=== PATIENT | female | born 1960 | race Native Hawaiian/Other Pacific Islander ===

== ENCOUNTER 2017-12-15 22:14 | Inpatient (IN) | payer MEDICARE, MEDICAID ==
[~2017-12-15] VITALS: Ht 162.6 cm; Wt 72.6 kg
[2017-12-15] MEDS ORDERED: SERT50TA12 (22:50)
[2017-12-15] MEDS ORDERED: DIPH50CA38 (22:50)
[2017-12-15] MEDS ORDERED: QUET400T3 (22:50)
[2017-12-15] MEDS ORDERED: CLON1TAB5 (22:50)
[2017-12-15] MEDS ORDERED: HYDR-3895 (22:50)
[2017-12-15] MEDS ORDERED: BUPR150T10 (22:50)
[2017-12-15] MEDS ORDERED: QUET200T3 (22:50)
[2017-12-15] MEDS ORDERED: HYDR-3028 (22:50)
[2017-12-15] MEDS ORDERED: LEVO25TA7 (22:50)
[2017-12-15] MEDS ORDERED: MAGNESIUM HYDROXIDE 30 ML UDC PO PRN (23:00)
[2017-12-15] MEDS ORDERED: LORAZEPAM 0.5 MG TABLET PO PRN (23:00)
[2017-12-15] MEDS ORDERED: MAG HYDROX/AL HYDROX/SIMETH 30 ML UDC PO PRN (23:00)
[2017-12-15] MEDS ORDERED: LEVO150T8 PO (23:17)
[2017-12-15 23:53] VITALS: BP 114/68
--- NOTE | 2017-12-16 00:21 | NUR ---
ADMISSION NOTES ADMITTED THIS 57 Y/O FEMALE PATIENT ADMIT FROM [facility] / , PT. INTIALLY CAME FROM HOME. PT IS ON 5150 HOLD FOR GD ,DTS , PER HOLD PT. IS ANXIOUS,PARANOID,RESPONDING TO INTERNAL STIMULI SI, UPON FACE TO FACE ASSESSMENT PATIENT IS A&O X2,3 ANXIOUS PARANOID , PT. IS POOR HISTORIAN, POOR INSIGHT ,POOR JUDGEMENT , V/S WNL, NO ACUTE DISTRESS NOTED, HX OF BIPOLAR DISORDER , ANXIETY,INSOMNIA MD AWARE AND NOTIFIED OF THE ADMISSION, PT. REFUSED TO FULL BODY SKIN ASSSESSMENT , PT. ONLY ALLOWED TO SUPERFICIAL SKIN ASSESSMENT AND PER PT. MY SKIN IS FINE, PICTURE TAKEN AND PLACED IN THE CHART, ENCOURAGED PT. VERBALIZED ANY FEELING CONCERN TO STAFF, ORIENT TO UNIT POLICY, WILL CONTINUE TO MONITOR FOR Q15 SAFETY AND BEHAVIOR.
--- NOTE | 2017-12-16 06:27 | NUR ---
GPS RN NOTES: PT.COMFORTABLY RESTING IN HER BED , DENIES ANY SI/HI AT THIS TIME , DENIES ANY PAIN /DISCOMFRT AT THIS TIME , OFFERED PT. TO FULL BODY SKIN ASSESSMENT BUT PT. STILL REFUSED AT THIS TIME AND DURING SHIFT PT. REFUSED SHOWER PER PT. MAY BE DURING DAY TIME, WILL CONTINUITY WITH CARE .
--- NOTE | 2017-12-16 06:45 | NUR ---
GPS RN NOTES: PT.COMFORTABLY RESTING IN HER BED , DENIES ANY SI/HI AT THIS TIME , DENIES ANY PAIN /DISCOMFRT AT THIS TIME , OFFERED PT. TO FULL BODY SKIN ASSESSMENT BUT PT. STILL REFUSED AT THIS TIME, ENCOURAGED EXPLAINED RISKS AND BENEFITS ,STILL REFUSED, AND DURING SHIFT PT. REFUSED SHOWER PER PT. MAY BE DURING DAY TIME, WILL CONTINUITY WITH CARE .
[2017-12-16 07:28] LABS: BASOPHILS % (AUTO) 0.5 % (0.0-2.0); EOSINOPHILS % (AUTO) 3.5 % (0.0-6.0); HEMATOCRIT 40 % (33-45); HEMOGLOBIN 13.9 g/dL (11.5-14.8); LYMPHOCYTES % (AUTO) 28.5 % (20.0-44.0); MEAN CORPUSCULAR HEMOGLOBIN 33 PG (26.0-33.0); MEAN CORPUSCULAR HGB CONC 35 g/dl (31.0-36.0); MEAN CORPUSCULAR VOLUME 95 fL (82-100); MONOCYTES # (AUTO) 0.8 /CMM (0.1-1.30); MONOCYTES % (AUTO) 10.9 % (2.0-12.0); NEUTROPHILS % (AUTO) 56.6 % (43.0-81.0); PLATELET COUNT (AUTO) 284 /CMM (150-450); RDW COEFFICIENT OF VARIATION 12.4 (11.5-15.0); RED BLOOD CELL COUNT(AUTO) 4.17 MIL/uL (4.0-5.2)
--- NOTE | 2017-12-16 07:31 | NUR ---
GPS RN NOTES CALLED [facility]ILY [facility] NO BODY ANSWERING PHONE / LEFT MESSAGE AT THIS NUMBERS YANNICK KRAUSE / DAUGHTER# AND BHARATHI COLIN SON # [phone]
[2017-12-16 07:49] LABS: THYROID STIMULATING HORMONE 0.807 uIU/mL (0.358-3.74)
[2017-12-16 08:00] VITALS: BP 110/69
[2017-12-16] MEDS: LEVOTHYROXINE SODIUM 75 MCG TABLET PO SCH (08:27)
[2017-12-16 08:28] LABS: ALBUMIN 3.9 g/dL (3.4-5.0); BILIRUBIN,TOTAL 0.4 mg/dL (0.2-1.0); CALCIUM, SERUM 8.7 mg/dL (8.5-10.1); CREATININE 0.7 mg/dL (0.6-1.3); MAGNESIUM 2.1 mg/dL (1.8-2.4); PHOSPHORUS 4.4 mg/dL (2.5-4.9); POTASSIUM 4.4 mmol/L (3.5-5.1); TOTAL PROTEIN, SERUM 7.4 g/dL (6.4-8.2)
[2017-12-16] MEDS: ACETAMINOPHEN 325 MG TABLET PO PRN (11:52)
[2017-12-16 12:16] LABS: APPEARANCE,URINE SL CLOUDY (CLEAR); BILIRUBIN,URINE NEGATIVE (NEGATIVE); BLOOD, URINE NEGATIVE Ery/uL (NEGATIVE); COLOR,URINE YELLOW (YELLOW); KETONES,URINE NEGATIVE (NEGATIVE); LEUKOCYTE ESTERASE ,URINE 2+ (NEGATIVE); NITRITE, URINE NEGATIVE (NEGATIVE); PROTEIN,URINE NEGATIVE (NEGATIVE); UGLUCOSE NEGATIVE (NEGATIVE); UROBILINOGEN,URINE 0.2 EU/dL (0.2)
[2017-12-16] MEDS: NICOTINE PATCH (14MG) 14 MG PATCH.TD24 TD SCH (12:21)
--- NOTE | 2017-12-16 13:32 | NUR ---
Initial Discharge Plan: Pt currently resides at [address] [place] [id number]; ([phone]). Per pt, she would like to return here with some outpatient services. SW will work with the pt and the MD regarding appropriate discharge plans. SW will form a safe and proper discharge.
[2017-12-16] MEDS: QUETIAPINE FUMARATE 100 MG TABLET PO SCH ×2 (14:45→21:52)
[2017-12-16 15:17] LABS: BACTERIA,URINE Few /HPF (None Seen); SQUAMOUS EPITHELIAL CELL,UR Few /HPF (None Seen)
[2017-12-16 16:00] VITALS: BP 106/68
--- NOTE | 2017-12-16 16:01 | NUR ---
GPS RN NOTE: NOTIFIED DR HARVEY REGARDING [facility] NO NEW ORDERS AT THIS TIME, WAITING FOR URINE CULTURE.
--- NOTE | 2017-12-16 16:19 | NUR ---
CAMI called the pt's daughter, Raghu Garcia ([phone]), and left a message on her voicemail.
[2017-12-16 21:54] VITALS: BP 104/65
[2017-12-17] MEDS: QUETIAPINE FUMARATE 100 MG TABLET PO SCH ×3 (08:08→20:55)
[2017-12-17] MEDS: NICOTINE PATCH (14MG) 14 MG PATCH.TD24 TD SCH (08:09)
[2017-12-17] MEDS: BUPROPION XL 150 MG TAB.ER.24 PO SCH (08:09)
[2017-12-17] MEDS: LEVOTHYROXINE SODIUM 75 MCG TABLET PO SCH (08:09)
[2017-12-17 08:29] VITALS: BP 112/62
[2017-12-17] MEDS: ACETAMINOPHEN 325 MG TABLET PO PRN (09:43)
[2017-12-17 16:00] VITALS: BP 147/79
[2017-12-17 20:00] VITALS: BP 105/57
[2017-12-17] MEDS: TEMAZEPAM 7.5 MG CAPSULE PO PRN (20:55)
[2017-12-18 08:00] VITALS: BP 140/90
[2017-12-18] MEDS: QUETIAPINE FUMARATE 100 MG TABLET PO SCH ×3 (08:02→21:22)
[2017-12-18] MEDS: NICOTINE PATCH (14MG) 14 MG PATCH.TD24 TD SCH (08:02)
[2017-12-18] MEDS: BUPROPION XL 150 MG TAB.ER.24 PO SCH (08:02)
[2017-12-18] MEDS: LEVOTHYROXINE SODIUM 75 MCG TABLET PO SCH (08:02)
--- NOTE | 2017-12-18 12:42 | NUR ---
SW called [facility] ([phone]) and left a voicemail for Jhony Li regarding the outpatient program for this pt to be set up with
--- NOTE | 2017-12-18 12:46 | NUR ---
SW called [facility] and left a voicemail to Shelia ([phone]) about referring this pt to their services.
--- NOTE | 2017-12-18 13:48 | NUR ---
Netta ([phone]) from [facility] called the SW back regarding the pt and stated that she would look into the pt and then call back if a referral can be made.
[2017-12-18 16:00] VITALS: BP 123/73
[2017-12-18 20:00] VITALS: BP 115/68
[2017-12-18] MEDS: TEMAZEPAM 7.5 MG CAPSULE PO PRN (21:22)
[2017-12-19 08:00] VITALS: BP 114/60
[2017-12-19] MEDS: BUPROPION XL 150 MG TAB.ER.24 PO SCH (09:04)
[2017-12-19] MEDS: QUETIAPINE FUMARATE 100 MG TABLET PO SCH ×3 (09:04→21:32)
[2017-12-19] MEDS: NICOTINE PATCH (14MG) 14 MG PATCH.TD24 TD SCH (09:04)
[2017-12-19] MEDS: LEVOTHYROXINE SODIUM 75 MCG TABLET PO SCH (09:04)
[2017-12-19] MEDS: ACETAMINOPHEN 325 MG TABLET PO PRN (09:05)
[2017-12-19 16:00] VITALS: BP 113/68
[2017-12-19 20:00] VITALS: BP 126/81
--- NOTE | 2017-12-19 20:15 | NUR ---
RECEIVED PATIENT IN DAY ROOM WATCHING TV WITHOUT COMPLAINT AND IN NO APPARENT DISTRESS. ALERT AND ORIENTED X 2 CALM AND PLEASANT UPON APPROACH BUT WITH PARANOID IDEATION. WILL CONTINUE TO MONITOR Q 15 MINUTES FOR COMFORT AND SAFETY.
[2017-12-19] MEDS ORDERED: QUETIAPINE FUMARATE 100 MG TABLET ONE (21:27)
[2017-12-20 08:00] VITALS: BP 113/68
[2017-12-20] MEDS: QUETIAPINE FUMARATE 100 MG TABLET PO SCH ×3 (08:21→21:20)
[2017-12-20] MEDS: LEVOTHYROXINE SODIUM 75 MCG TABLET PO SCH (08:21)
[2017-12-20] MEDS: BUPROPION XL 150 MG TAB.ER.24 PO SCH (08:21)
[2017-12-20] MEDS: NICOTINE PATCH (14MG) 14 MG PATCH.TD24 TD SCH (08:21)
[2017-12-20 09:02] LABS: CALCIUM, SERUM 8.8 mg/dL (8.5-10.1); CREATININE 0.9 mg/dL (0.6-1.3); POTASSIUM 4.2 mmol/L (3.5-5.1)
[2017-12-20 16:02] VITALS: BP 104/59
[2017-12-20 20:29] VITALS: BP 118/54
[2017-12-20] MEDS: ACETAMINOPHEN 325 MG TABLET PO PRN (21:37)
[2017-12-20] MEDS: TEMAZEPAM 7.5 MG CAPSULE PO PRN (21:55)
[2017-12-21 08:00] VITALS: BP 110/75
[2017-12-21] MEDS: LEVOTHYROXINE SODIUM 75 MCG TABLET PO SCH (09:11)
[2017-12-21] MEDS: NICOTINE PATCH (14MG) 14 MG PATCH.TD24 TD SCH (09:11)
[2017-12-21] MEDS: BUPROPION XL 150 MG TAB.ER.24 PO SCH (09:11)
[2017-12-21] MEDS: QUETIAPINE FUMARATE 100 MG TABLET PO SCH ×3 (09:11→21:39)
--- NOTE | 2017-12-21 15:45 | NUR ---
SW spoke to Dr. Schaefer ([phone] ext [phone]) from [facility] in regards to the pt attending their outpatient program. The pt has an appt for December 25 at 9:30AM.
[2017-12-21 16:00] VITALS: BP 150/90
[2017-12-21 20:00] VITALS: BP 150/89
[2017-12-21] MEDS: TEMAZEPAM 7.5 MG CAPSULE PO PRN (22:58)
[2017-12-22 08:00] VITALS: BP 109/58
[2017-12-22] MEDS: NICOTINE PATCH (14MG) 14 MG PATCH.TD24 TD SCH (08:34)
[2017-12-22] MEDS: BUPROPION XL 150 MG TAB.ER.24 PO SCH (08:34)
[2017-12-22] MEDS: LEVOTHYROXINE SODIUM 75 MCG TABLET PO SCH (08:35)
[2017-12-22] MEDS: QUETIAPINE FUMARATE 100 MG TABLET PO SCH ×2 (08:35→12:16)
--- NOTE | 2017-12-22 10:45 | NUR ---
gps chef's assistant: notes jennifer tuttle (business services associate) made aware re: d'c home at 1600 with order okay to d'c home with prescription. order carried out and acknowledged.
--- NOTE | 2017-12-22 11:00 | NUR ---
gps admin secretary: notes dr. quezada here with discharge home orders with prescriptions. d'c instructions with prescriptions given to pt and verbalized understanding. pt will f/u with her psychiatrist and pinmaker as scheduled by secondary social studies teacher. pt to be berry picker by taxi at 1600 that was arrange by secondary social studies teacher and pt aware. pt stable for discharge. denies si/hi and denies auditory/visual hallucinations at this time. will continue to monitor.
--- NOTE | 2017-12-22 14:00 | NUR ---
gps citrus fruit packer: notes pt waiting patiently. denies si/hi at this time. no paranoid behavior noted. pt in a good mood. needs attended. will continue to monitor.
[2017-12-22] MEDS: ACETAMINOPHEN 325 MG TABLET PO PRN (15:22)
--- NOTE | 2017-12-22 16:00 | NUR ---
gps intervention nurse: notes all valuables, medications, and belongings returned to pt and d'c papers with prescription given to pt with taxi voucher provided. pt stable for discharge, denies si/hi, auditory/visual hallucinations at time of discharged. pt escorted down to main lobby with voucher in hand in stable condition.
--- NOTE | 2017-12-22 16:02 | NUR ---
Discharge Note: Pt was discharged home to [address] [place] [address], [address], [place] [address]; ([phone]). Pt left at around 4pm via taxi that was ordered by the SW for $67 that was approved by her clerk supervisor, Tata Zamorano. CAMI scheduled an appointment for the pt on December 25 at 9:30AM at [facility] with Dr. Schaefer ([phone] ext [phone]) for outpatient services. Pt is aware that she must call them around 7AM to get a ride to the facility. Upon discharge, pt appeared to be in a euthymic mood and appeared to have a calm affect. Pt denied any suicidal and homicidal ideation as well as any auditory or visual hallucinations. Pt was provided with three substance use referrals that are listed below upon her discharge. Pt was referred to be under the care of psychiatrist, Dr. Lex Sigala, located at [address], [address], [place] [address]; and will be under the care of her hone operator, Dr. Kuldip Banerjee, located at [address] [facility] [facility], [place] [address]; . Referrals: [facility] [address] [place] [address] Tel. [facility] [address] [place] Provider Mental Health Treatment Tele-dermatology [facility] [place] [address] [place] [address] [facility] [address] [place] [address]
== END 2017-12-22 16:09 | disposition home or self-care (01) | DRG 885 ==
LOC: GPS 22:14
PROVIDERS: ADMIT Psychiatry & Neurology Psychosomatic Medicine
DX: F25.0 Schizoaffective disorder, bipolar type (principal); N17.0 Acute kidney failure with tubular necrosis; F23 Brief psychotic disorder; E03.9 Hypothyroidism, unspecified; Z73.6 Limitation of activities due to disability
CPT/HCPCS: 36415; 80048-TC; 80053-TC; 80061-TC; 81000-TC; 83735-TC; 84100-TC; 84443-TC; 85025-TC; 87081-TC; 87086-TC